=== PATIENT | male | born 1955 | race African-American/Black ===

== ENCOUNTER 2016-08-04 07:58 | Emergency (ER) | payer OTHER ==
[~2016-08-04] VITALS: Ht 167.6 cm; Wt 68.0 kg
[2016-08-04] MEDS ORDERED: IBUPROFEN 600MG TABLET PO ONE (08:45)
[2016-08-04 09:12] VITALS: BP 148/68
== END 2016-08-04 10:34 | disposition home or self-care (01) ==
LOC: ER 08:37
DX: S66.911A Strain of unspecified muscle, fascia and tendon at wrist and hand level, right hand, initial encounter (principal); X58.XXXA Exposure to other specified factors, initial encounter; Y93.89 Activity, other specified; Y92.89 Other specified places as the place of occurrence of the external cause; M79.5 Residual foreign body in soft tissue; R03.0 Elevated blood-pressure reading, without diagnosis of hypertension; F17.210 Nicotine dependence, cigarettes, uncomplicated; F12.90 Cannabis use, unspecified, uncomplicated
CPT/HCPCS: 73130; 99284

== ENCOUNTER 2017-04-22 14:22 | Emergency (ER) | payer OTHER ==
[~2017-04-22] VITALS: Ht 170.2 cm; Wt 64.0 kg
[2017-04-22] MEDS ORDERED: NORCO (14:27)
[2017-04-22] MEDS: METOCLOPRAMIDE HCL 10MG TABLET PO ONE (16:54)
[2017-04-22] MEDS: MORPHINE SULFATE 10 MG/ML CPJ IM ONE (16:54)
[2017-04-22] MEDS: DIPHENHYDRAMINE 50MG/ML VIAL IM PRN (16:54)
[2017-04-22 16:55] LABS: EOSINOPHILS % 0.9 % (0.0-5.0); HEMATOCRIT. 37.5 % (42.0-52.0); HEMOGLOBIN. 12.7 g/dL (14.0-18.0); LYMPHOCYTES % 34.7 % (20.0-50.0); MEAN CORPUSCULAR HEMOGLOBIN 35.1 pg (28.0-32.0); MEAN CORPUSCULAR VOLUME 103.5 fL (80.0-94.0); MEAN PLATELET VOLUME 7.6 fl (7.4-10.4); MONOCYTES % 6.9 % (2.0-8.0); NEUTROPHILS % 56.5 % (40.0-76.0); PLATELET 270 x1000/uL (130-400); RED BLOOD CELL COUNT 3.62 mill/uL (4.7-6.1); RED CELL DISTRIBUTION WIDTH 14.9 % (11.6-14.6)
[2017-04-22 17:10] LABS: CARBON DIOXIDE 21 mEq/L (21-32); CHLORIDE 107 mEq/L (98-107)
[2017-04-22] MEDS: METHOCARBAMOL 500MG TABLET PO SCH (19:45)
[2017-04-22] MEDS: ACETAMINOPHEN WITH CODEINE 300/30MG TABLET PO SCH (19:45)
[2017-04-22] MEDS: METHOCARBAMOL 500MG TABLET PO ONE (19:57)
[2017-04-22] MEDS: KETOROLAC 60MG/2ML VIAL IM ONE (19:57)
[2017-04-22 19:58] VITALS: BP 141/60
[2017-04-22] MEDS: ACETAMINOPHEN WITH CODEINE 300/30MG TABLET PO ONE (19:58)
== END 2017-04-22 21:05 | disposition home or self-care (01) ==
LOC: ER 14:22
DX: S16.1XXA Strain of muscle, fascia and tendon at neck level, initial encounter (principal); G43.909 Migraine, unspecified, not intractable, without status migrainosus; F12.10 Cannabis abuse, uncomplicated; X58.XXXA Exposure to other specified factors, initial encounter; Y93.89 Activity, other specified; Y92.89 Other specified places as the place of occurrence of the external cause; Y99.8 Other external cause status
CPT/HCPCS: 36415; 70450; 80053; 85025; 96372; 99285; J1200; J1885; J2270; J8597

== ENCOUNTER 2020-02-24 10:13 | Emergency (ER) | payer OTHER ==
[~2020-02-24] VITALS: Ht 165.1 cm; Wt 61.0 kg
[~2020-02-24 10:13] MED LIST: NORCO
[2020-02-24 10:18] VITALS: BP 106/61
[2020-02-24] MEDS ORDERED: HYDROCODONE/ACETAMINOPHEN 5/325MG TABLET PO ONE (10:30)
[2020-02-24 10:47] LABS: BASOPHILS % 0.8 % (0.0-2.0); EOSINOPHILS % 0.1 % (0.0-5.0); HEMATOCRIT. 41.5 % (42.0-52.0); HEMOGLOBIN. 14.1 g/dL (14.0-18.0); LYMPHOCYTES % 21.7 % (20.0-50.0); MEAN CORPUSCULAR HEMOGLOBIN 35.1 pg (28.0-32.0); MEAN CORPUSCULAR VOLUME 103.4 fL (80.0-94.0); MEAN PLATELET VOLUME 8.1 fl (7.4-10.4); MONOCYTES % 6.2 % (2.0-8.0); NEUTROPHILS % 71.2 % (40.0-76.0); PLATELET 169 x1000/uL (130-400); RED BLOOD CELL COUNT 4.02 mill/uL (4.7-6.1); RED CELL DISTRIBUTION WIDTH 15.6 % (11.6-14.6)
[2020-02-24 10:55] LABS: CHLORIDE 104 mEq/L (98-107)
[2020-02-24 11:00] LABS: C REACTIVE PROTEIN QUANT 4.6 mg/L (0.0-3.0)
== END 2020-02-24 12:03 | disposition home or self-care (01) ==
LOC: ER 10:13
DX: M25.572 Pain in left ankle and joints of left foot (principal); F32.9 Major depressive disorder, single episode, unspecified; E78.00 Pure hypercholesterolemia, unspecified; I49.9 Cardiac arrhythmia, unspecified
CPT/HCPCS: 36415; 73610; 80053; 84550; 85025; 85651; 86140; 99284; Z7610

== ENCOUNTER 2023-12-25 11:03 | Emergency (ER) | payer BC, MEDICAID ==
[~2023-12-25] VITALS: Ht 172.7 cm; Wt 73.0 kg
[2023-12-25 11:09] VITALS: O2SAT 99
[2023-12-25] MEDS ORDERED: ACETAMINOPHEN 325MG TABLET PO ONE (11:15)
[2023-12-25 15:02] VITALS: BP 112/65; PULSE 76; RESP 15; TEMP 37.05852; O2SAT 99
== END 2023-12-25 15:04 | disposition home or self-care (01) ==
LOC: ER 11:03
DX: S09.90XA Unspecified injury of head, initial encounter (principal); F41.9 Anxiety disorder, unspecified; F12.10 Cannabis abuse, uncomplicated; E78.00 Pure hypercholesterolemia, unspecified; F32.A Depression, unspecified; I10 Essential (primary) hypertension; W17.89XA Other fall from one level to another, initial encounter; Y93.89 Activity, other specified; Y92.89 Other specified places as the place of occurrence of the external cause; Y99.8 Other external cause status
CPT/HCPCS: 99284

== ENCOUNTER 2024-06-29 13:42 | Emergency (ER) | payer BC, MEDICAID ==
[~2024-06-29] VITALS: Ht 170.2 cm; Wt 66.0 kg
[2024-06-29 13:50] VITALS: O2SAT 98
[2024-06-29 14:30] VITALS: BP 90/52; PULSE 102; RESP 18; TEMP 36.9; O2SAT 98
== END 2024-06-29 14:33 | disposition left against medical advice (07) ==
LOC: ER 13:42
DX: R53.1 Weakness (principal); E78.00 Pure hypercholesterolemia, unspecified; I10 Essential (primary) hypertension; I49.8 Other specified cardiac arrhythmias; F41.9 Anxiety disorder, unspecified
CPT/HCPCS: 99283

== ENCOUNTER 2024-10-23 15:01 | Emergency (ER) | payer BC, MEDICAID ==
[~2024-10-23] VITALS: Ht 167.6 cm; Wt 70.0 kg
[2024-10-23 15:09] VITALS: TEMP 37; O2SAT 94
[2024-10-23 15:49] LABS: BASOPHILS % 0.2 % (0.0-2.0); EOSINOPHILS % 2.0 % (0.0-5.0); HEMATOCRIT. 44.0 % (42.0-52.0); HEMOGLOBIN. 14.7 g/dL (14.0-18.0); LYMPHOCYTES % 68.0 % (20.0-50.0); MEAN PLATELET VOLUME 7.8 fl (7.4-10.4); MONOCYTES % 6.1 % (2.0-8.0); NEUTROPHILS % 23.7 % (40.0-76.0); PLATELET 221 x1000/uL (130-400); RED BLOOD CELL COUNT 4.34 mill/uL (4.7-6.1); RED CELL DISTRIBUTION WIDTH 14.8 % (11.6-14.6)
[2024-10-23 15:58] LABS: CREATININE 0.7 mg/dL (0.6-1.3); UREA NITROGEN BLOOD 9 mg/dL (9-23)
[2024-10-23 18:07] LABS: CLARITY URINE CLEAR (CLEAR); COLOR URINE YELLOW (YELLOW); GLUCOSE URINE NEGATIVE (NEGATIVE); KETONES URINE NEGATIVE (NEGATIVE); LEUKOCYTE ESTERASE URINE NEGATIVE (NEGATIVE); NITRITE URINE NEGATIVE (NEGATIVE); OCCULT BLOOD URINE NEGATIVE (NEGATIVE); PH URINE 6.0 (4.5-8.0); PROTEIN URINE NEGATIVE (NEGATIVE); SPECIFIC GRAVITY URINE 1.010 (1.005-1.030); UROBILINOGEN URINE 1.0 E.U./dL (0.2-1.0)
[2024-10-23] MEDS ORDERED: ZIPRASIDONE MESYLATE 20MG/VIAL IM ONE (18:45)
[2024-10-23] MEDS: ZIPRASIDONE MESYLATE 20MG/VIAL IM SCH (19:12)
[2024-10-23 19:42] VITALS: BP 126/102; PULSE 60; RESP 17; O2SAT 98
== END 2024-10-23 20:24 | disposition home or self-care (01) ==
LOC: ER 15:01
DX: S00.83XA Contusion of other part of head, initial encounter (principal); F10.129 Alcohol abuse with intoxication, unspecified; E78.00 Pure hypercholesterolemia, unspecified; I10 Essential (primary) hypertension; F32.A Depression, unspecified; F41.9 Anxiety disorder, unspecified; W18.30XA Fall on same level, unspecified, initial encounter; Y93.89 Activity, other specified; Y92.89 Other specified places as the place of occurrence of the external cause; Y99.8 Other external cause status; Y90.8 Blood alcohol level of 240 mg/100 ml or more
CPT/HCPCS: 80048; 81003; 80320; 85025; 36415; 70450; 93005; 96372; 99285; J3486; G0480

== ENCOUNTER 2024-12-08 11:06 | Emergency (ER) | payer BC, MEDICAID ==
[~2024-12-08] VITALS: Ht 165.1 cm; Wt 57.0 kg
[2024-12-08 11:10] VITALS: O2SAT 99
[2024-12-08] MEDS: IBUPROFEN 400MG TABLET PO ONE (12:01)
[2024-12-08 13:13] VITALS: BP 147/54; PULSE 60; RESP 15; TEMP 36.9; O2SAT 99
[2024-12-08] MEDS ORDERED: TOPUD MT (13:18)
== END 2024-12-08 13:25 | disposition home or self-care (01) ==
LOC: ER 11:06
DX: M19.031 Primary osteoarthritis, right wrist (principal); I10 Essential (primary) hypertension; E78.00 Pure hypercholesterolemia, unspecified; F19.90 Other psychoactive substance use, unspecified, uncomplicated; F41.9 Anxiety disorder, unspecified
CPT/HCPCS: 73110; 99283

== ENCOUNTER 2025-01-31 20:18 | Emergency (ER) | payer BC, MEDICAID ==
[~2025-01-31] VITALS: Ht 167.6 cm; Wt 63.0 kg
[~2025-01-31 20:18] MED LIST changes: +TOPUD MT
[2025-01-31 20:22] VITALS: TEMP 97.6; O2SAT 98
[2025-01-31] MEDS: SODIUM CHLORIDE 0.9% 1,000 ML IV ONE (23:37)
[2025-01-31 23:39] LABS: BASOPHILS % 0.7 % (0.0-2.0); EOSINOPHILS % 2.2 % (0.0-5.0); HEMATOCRIT. 38.1 % (42.0-52.0); HEMOGLOBIN. 12.8 g/dL (14.0-18.0); LYMPHOCYTES % 58.2 % (20.0-50.0); MEAN PLATELET VOLUME 8.5 fl (7.4-10.4); MONOCYTES % 6.3 % (2.0-8.0); NEUTROPHILS % 32.6 % (40.0-76.0); PLATELET 109 x1000/uL (130-400); RED BLOOD CELL COUNT 3.59 mill/uL (4.7-6.1); RED CELL DISTRIBUTION WIDTH 14.9 % (11.6-14.6)
[2025-01-31 23:49] LABS: CREATININE 0.6 mg/dL (0.6-1.3); INR 1.0
[2025-01-31 23:50] LABS: UREA NITROGEN BLOOD 7 mg/dL (9-23)
[2025-01-31 23:51] LABS: ASPARTATE AMINOTRANSFERASE 110 IU/L (<34); TROPONIN I HIGH SENSITIVITY 7 ng/L (3.0-53)
[2025-01-31 23:52] LABS: BILIRUBIN DIRECT 0.3 mg/dL (<=3.0); BILIRUBIN TOTAL 0.7 mg/dL (0.1-1.0); PROTEIN TOTAL 8.0 g/dL (6.0-8.3)
[2025-02-01] MEDS ORDERED: FAMO-135 MT (00:18)
[2025-02-01] MEDS ORDERED: IBUP-1455 MT (00:18)
[2025-02-01 00:23] LABS: CLARITY URINE CLEAR (CLEAR); COLOR URINE YELLOW (YELLOW); SPECIFIC GRAVITY URINE 1.008 (1.005-1.030)
[2025-02-01 00:24] LABS: GLUCOSE URINE NEGATIVE (NEGATIVE); KETONES URINE NEGATIVE (NEGATIVE); LEUKOCYTE ESTERASE URINE NEGATIVE (NEGATIVE); NITRITE URINE POSITIVE (NEGATIVE); OCCULT BLOOD URINE NEGATIVE (NEGATIVE); PH URINE 5.5 (4.5-8.0); PROTEIN URINE NEGATIVE (NEGATIVE); UROBILINOGEN URINE 0.2 E.U./dL (0.2-1.0)
[2025-02-01 00:36] LABS: *AMPHETAMINES SCREEN URINE NEGATIVE (NEGATIVE); *BARBITURATES SCREEN URINE NEGATIVE (NEGATIVE); *BENZODIAZEPINES SCREEN URINE NEGATIVE (NEGATIVE); *COCAINE SCREEN URINE NEGATIVE (NEGATIVE); CANNABINOID URINE SCREEN NEGATIVE (NEGATIVE); ECSTASY MDMA SCREEN URINE NEGATIVE (NEGATIVE); METHADONE URINE SCREEN NEGATIVE (NEGATIVE); OPIATES URINE SCREEN NEGATIVE (NEGATIVE); PHENCYCLIDINE URINE SCREEN NEGATIVE (NEGATIVE)
[2025-02-01 01:41] LABS: BACTERIA URINE 3+; RBC URINE NONE SEEN /hpf (0-2); SQUAMOUS EPITHELIAL CELL URINE FEW /lpf (RARE/1+)
[2025-02-01 02:35] VITALS: BP 131/64; PULSE 60; RESP 12; O2SAT 95
== END 2025-02-01 03:12 | disposition short-term general hospital (02) ==
LOC: ER 20:18 → CMPBEDREQ 02-01 08:53
DX: F10.129 Alcohol abuse with intoxication, unspecified (principal); R53.1 Weakness; R51.9 Headache, unspecified; I10 Essential (primary) hypertension; F41.9 Anxiety disorder, unspecified; F32.A Depression, unspecified; E11.9 Type 2 diabetes mellitus without complications; E78.00 Pure hypercholesterolemia, unspecified; Z87.891 Personal history of nicotine dependence; Y90.9 Presence of alcohol in blood, level not specified
CPT/HCPCS: 80076; 80305; 80048; 81003; 80307; 80329; 80320; 82140; 82550; 83735; 85025; 85610; 85730; 86850; 86900; 86901; 84484; 36415; 71045; 72170; 73560; 70450; 70486; 72125; 93005; 96360; 99285; J7030; G0480